=== PATIENT | male | born 1935 | race Caucasian/White ===

== ENCOUNTER → 2018-06-18 | Outpatient (CLI) | payer MEDICARE, OTHER ==
[~2018-06-18] MED LIST: ASPI-515 PO; ATOR40TA PO; GLIM2TAB2 PO; ISOS30TA21 PO; OMEP-110 PO; TAMS0.4C2 PO; VALS160T3 PO; [UNRECOGNIZED DRUG - OTHER] SQ-INSULIN; will bring list
== END | disposition home or self-care (01) ==
LOC: CVU 14:36
PROVIDERS: ATTEND Internal Medicine Cardiovascular Disease
DX: I65.23 Occlusion and stenosis of bilateral carotid arteries (principal); I10 Essential (primary) hypertension; E78.5 Hyperlipidemia, unspecified; I25.10 Atherosclerotic heart disease of native coronary artery without angina pectoris; E11.9 Type 2 diabetes mellitus without complications; I25.2 Old myocardial infarction; Z95.1 Presence of aortocoronary bypass graft
CPT/HCPCS: 93880; 93925